=== PATIENT | female | born 1955 | race Caucasian/White ===

== ENCOUNTER 2019-09-14 16:16 | Emergency (ER) | payer BC, MEDICARE ==
[2019-09-14] MEDS ORDERED: LORazepam 0.5 MG Tab PO ONE ×2 (16:17→18:19)
[2019-09-14] MEDS ORDERED: methylPREDNISolone Sodium Succinate 125 MG/2 ML SDV IVPUSH ONE (16:22)
--- NOTE | 2019-09-14 16:40 | EDM.PDOC ---
ED HPI GENERAL MEDICAL PROBLEM - General Chief Complaint: Allergic Reaction Stated Complaint: ALERGIC REACTION TO A MEDICATION Time Seen by Provider: 09/14/19 16:25 Source of Information: Reports: Patient History Limitations: Reports: No Limitations - History of Present Illness INITIAL COMMENTS - FREE TEXT/NARRATIVE: This 63 yo female patient reports to the ED due to diffuse hives. The patient reports she was started on Bactrim last . The patient's last dose was Wednesday. The patient reports she started to notice hives on Wednesday Evening, but they have been getting worse since that time. The patient has been taking Benadryl today (2 doses of 50 mg) today with no improvements. Onset Date: 09/12/19 Duration: Constant, Getting Worse Location: Reports: Abdomen, Upper Extremity, Left, Upper Extremity, Right, Lower Extremity, Left, Lower Extremity, Right Quality: Reports: Other Severity: Moderate Improves with: Reports: None Worsens with: Reports: None Context: Reports: Other Associated Symptoms: Reports: Other - Related Data Allergies Allergy/AdvReac Type Severity Reaction Status Date / Time aspirin Allergy Bleeding Verified 09/14/19 16:22 flurbiprofen [From Ansaid] Allergy Bleeding Verified 09/14/19 16:22 sulfamethoxazole Allergy Hives Verified 09/14/19 16:22 [From Bactrim] trimethoprim [From Bactrim] Allergy Hives Verified 09/14/19 16:22 Home Meds: Home Meds Amitriptyline HCl 05/24/14 [History] FLUoxetine HCl [Fluoxetine HCl] 05/24/14 [History] Hydrochlorothiazide 05/24/14 [History] Quinapril [Accupril] 05/24/14 [History] Simvastatin 05/24/14 [History] Past Medical History HEENT History: Reports: Impaired Vision Genitourinary History: Reports: UTI, Recurrent - Past Surgical History HEENT Surgical History: Reports: Tonsillectomy GI Surgical History: Reports: Other (See Below) Other GI Surgeries/Procedures: lap band Musculoskeletal Surgical History: Reports: Knee Replacement Social & Family History - Tobacco Use Smoking Status *Q: Never Smoker Second Hand Smoke Exposure: Yes - Recreational Drug Use Recreational Drug Use: No ED ROS ALLERGIC REACTION - Review of Systems Review Of Systems: Comprehensive ROS is negative, except as noted in HPI. ED EXAM GENERAL NO PERIP PULSE - Physical Exam Exam: See Below Exam Limited By: No Limitations General Appearance: Alert, WD/WN, Moderate Distress Eye Exam: Bilateral Eye: EOMI, Normal Inspection, PERRL Ears: Normal External Exam, Normal Canal, Hearing Grossly Normal, Normal TMs Nose: Normal Inspection, Normal Mucosa, No Blood Throat/Mouth: Normal Inspection, Normal Lips, Normal Teeth, Normal Gums, Normal Oropharynx, Normal Voice, No Airway Compromise Head: Atraumatic, Normocephalic Neck: Normal Inspection, Supple, Non-Tender, Full Range of Motion Respiratory/Chest: No Respiratory Distress, Lungs Clear, Normal Breath Sounds, No Accessory Muscle Use, Chest Non-Tender Cardiovascular: Normal Peripheral Pulses, Regular Rate, Rhythm, No Edema, No Gallop, No JVD, No Murmur, No Rub GI/Abdominal: Normal Bowel Sounds, Soft, Non-Tender, No Organomegaly, No Distention, No Abnormal Bruit, No Mass (Female) Exam: Deferred Rectal (Female) Exam: Deferred Extremities: Normal Range of Motion, Non-Tender, No Pedal Edema, Normal Capillary Refill Neurological: Alert, Oriented, CN II-XII Intact, Normal Cognition, Normal Gait, Normal Reflexes, No Motor/Sensory Deficits Psychiatric: Normal Affect, Normal Mood Skin Exam: Other (Hives (abdomen, upper and lower extremities)) Lymphatic: No Adenopathy Course - Vital Signs Last Recorded V/S: Last Vital Signs Temp 36.6 C 09/14/19 16:18 Pulse 114 H 09/14/19 16:18 Resp 16 09/14/19 16:18 BP 155/96 H 09/14/19 16:18 Pulse Ox 97 09/14/19 16:18 - Orders/Labs/Meds Meds: Medications Discontinued Medications Generic Name Dose Route Start Last Admin Trade Name Freq PRN Reason Stop Dose Admin Famotidine 20 mg 09/14/19 17:40 09/14/19 17:44 Pepcid IVPUSH 09/14/19 17:41 20 mg ONETIME ONE Administration Lorazepam 0.5 mg 09/14/19 18:19 Ativan PO 09/14/19 18:20 ONETIME ONE Methylprednisolone Sodium Succinate 125 mg 09/14/19 16:22 09/14/19 16:29 Solu-Medrol IVPUSH 09/14/19 16:23 125 mg ONETIME ONE Administration Departure - Departure Time of Disposition: 18:22 Disposition: Home, Self-Care 01 Condition: Fair Clinical Impression: Allergic reaction caused by a drug Qualifiers: Encounter type: initial encounter Qualified Code(s): T78.40XA - Allergy, unspecified, initial encounter - Discharge Information *PRESCRIPTION DRUG MONITORING PROGRAM REVIEWED*: Not Applicable *COPY OF PRESCRIPTION DRUG MONITORING REPORT IN PATIENT MARCELINO: Not Applicable Instructions: Allergies, Adult, [id number] Forms: ED Department Discharge Care Plan Goals: The patient was advised of the examination results during the visit. The patient was given an IV dose of SoluMedrol (125 mg), an IV dose of Pepcid and an oral dose of Ativan (0.5 mg) while in the ED. The patient was discharged with 1 dose of Ativan (0.5 mg) to take at bedtime. The patient was also discharged with a script for Prednisone (20 mg) #10 to take 2 by mouth daily for 5 days. The patient was advised to 1) avoid taking Bactrim, 2) take Benadryl (25 mg) every 6 hours, 3) take [id number] Pepcid as directed and 4) take the prescribed Prednisone as directed. If the patient has any additional symptoms or concerns, the patient should either return to the emergency department or visit her primary care facility.
[2019-09-14] MEDS ORDERED: Famotidine 20 MG/2 ML SDV IVPUSH ONE (17:40)
[2019-09-14] MEDS ORDERED: LORazepam 0.5 MG Tab ONE (18:25)
== END 2019-09-14 18:33 | disposition home or self-care (01) ==
LOC: DL.ED 16:16
DX: L50.9 Urticaria, unspecified (principal); T36.8X5A Adverse effect of other systemic antibiotics, initial encounter; Z88.6 Allergy status to analgesic agent; Z88.2 Allergy status to sulfonamides; Z88.1 Allergy status to other antibiotic agents
CPT/HCPCS: 96374; 96375; 99283; A9270; J2930; J3490

== ENCOUNTER 2020-02-29 12:48 | Emergency (ER) | payer MEDICARE, OTHER ==
[2020-02-29] MEDS ORDERED: methylPREDNISolone Sodium Succinate 125 MG/2 ML SDV IM ONE (13:03)
[2020-02-29] MEDS ORDERED: diphenhydrAMINE 50 MG Cap PO ONE (13:04)
--- NOTE | 2020-02-29 14:14 | EDM.PDOC ---
ED HPI GENERAL MEDICAL PROBLEM - General Chief Complaint: Allergic Reaction Stated Complaint: HIVES AND THROAT SWELLING Time Seen by Provider: 02/29/20 13:05 Source of Information: Reports: Patient History Limitations: Reports: No Limitations - History of Present Illness INITIAL COMMENTS - FREE TEXT/NARRATIVE: This 64 yo female patient reports to the ED with swelling in her tongue, throat and hives. The patient reports she recently finished Macrobid for a UTI. Today, the patient reports noticing the above symptoms prior to arrival. The patient reports she did take a Banadryl (25 mg) but it was . 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 TECHNICIAN: Reports: Other Medication(s) Other Treatments ELECTRICAL AND INSTRUMENT TECHNICIAN: benadryl - Related Data Allergies Allergy/AdvReac Type Severity Reaction Status Date / Time aspirin Allergy Bleeding Verified 02/29/20 12:59 flurbiprofen [From Ansaid] Allergy Bleeding Verified 02/29/20 12:59 sulfamethoxazole Allergy Hives Verified 02/29/20 12:59 [From Bactrim] trimethoprim [From Bactrim] Allergy Hives Verified 02/29/20 12:59 Home Meds: Home Meds Amitriptyline HCl 10 mg PO BEDTIME 05/24/14 [History] Hydrochlorothiazide 254 mg PO DAILY 05/24/14 [History] Quinapril [Accupril] 40 mg PO DAILY 05/24/14 [History] Simvastatin 20 mg PO BEDTIME 05/24/14 [History] Past Medical History HEENT History: Reports: Impaired Vision Cardiovascular History: Reports: None Respiratory History: Reports: None Gastrointestinal History: Reports: None Genitourinary History: Reports: UTI, Recurrent 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 Musculoskeletal History: Reports: None Neurological History: Reports: None Psychiatric History: Reports: None Endocrine/Metabolic History: Reports: None Hematologic History: Reports: None Immunologic History: Reports: None Oncologic (Cancer) History: Reports: None Dermatologic History: Reports: None - Infectious Disease History Infectious Disease History: Reports: None - Past Surgical History HEENT Surgical History: Reports: Tonsillectomy GI Surgical History: Reports: Other (See Below) Other GI Surgeries/Procedures: lap band Musculoskeletal Surgical History: Reports: Knee Replacement Social & Family History - Family History Family Medical History: Noncontributory - Tobacco Use Smoking Status *Q: Never Smoker Second Hand Smoke Exposure: No - Caffeine Use Caffeine Use: Reports: None - Recreational Drug Use Recreational Drug Use: No ED ROS ALLERGIC REACTION - Review of Systems Review Of Systems: Comprehensive ROS is negative, except as noted in HPI. ED EXAM GENERAL NO PERIP PULSE - Physical Exam Exam: See Below Exam Limited By: No Limitations General Appearance: Alert, WD/WN, Anxious, Mild Distress Eye Exam: Bilateral Eye: EOMI, Normal Inspection, PERRL Ears: Normal External Exam, Normal Canal, Hearing Grossly Normal, Normal TMs Nose: Normal Inspection, Normal Mucosa, No Blood Throat/Mouth: Normal Inspection, Normal Lips, Normal Teeth, Normal Gums, Normal Oropharynx, Normal Voice, No Airway Compromise Head: Atraumatic, Normocephalic Neck: Normal Inspection, Supple, Non-Tender, Full Range of Motion Respiratory/Chest: No Respiratory Distress, Lungs Clear, Normal Breath Sounds, No Accessory Muscle Use, Chest Non-Tender Cardiovascular: Normal Peripheral Pulses, Regular Rate, Rhythm, No Edema, No Gallop, No JVD, No Murmur, No Rub GI/Abdominal: Normal Bowel Sounds, Soft, Non-Tender, No Organomegaly, No Distention, No Abnormal Bruit, No Mass (Female) Exam: Deferred Rectal (Female) Exam: Deferred Back Exam: Normal Inspection, Full Range of Motion, NT Extremities: Normal Inspection, Normal Range of Motion, Non-Tender, Normal Capillary Refill, No Pedal Edema Neurological: Alert, Oriented, CN II-XII Intact, Normal Cognition, Normal Gait, Normal Reflexes, No Motor/Sensory Deficits Psychiatric: Normal Affect, Normal Mood Skin Exam: Warm, Dry, Intact, Normal Color Lymphatic: No Adenopathy Course - Vital Signs Last Recorded V/S: Last Vital Signs Temp 37.4 C 02/29/20 12:53 Pulse 123 H 02/29/20 12:53 Resp 16 02/29/20 12:53 BP 153/86 H 02/29/20 12:53 Pulse Ox 100 02/29/20 12:53 - Orders/Labs/Meds Meds: Medications Discontinued Medications Generic Name Dose Route Start Last Admin Trade Name Clydeq PRN Reason Stop Dose Admin Diphenhydramine HCl 50 mg 02/29/20 13:04 02/29/20 13:21 Benadryl PO 02/29/20 13:05 50 mg ONETIME ONE Administration Methylprednisolone Sodium Succinate 125 mg 02/29/20 13:03 02/29/20 13:22 Solu-Medrol IM 02/29/20 13:04 125 mg ONETIME ONE Administration Departure - Departure Time of Disposition: 14:10 Disposition: Home, Self-Care 01 Condition: Fair Clinical Impression: Allergic reaction to drug Qualifiers: Encounter type: initial encounter Qualified Code(s): T78.40XA - Allergy, unspecified, initial encounter - Discharge Information *PRESCRIPTION DRUG MONITORING PROGRAM REVIEWED*: Not Applicable *COPY OF PRESCRIPTION DRUG MONITORING REPORT IN PATIENT MARCELINO: Not Applicable Forms: ED Department Discharge Care Plan Goals: The patient was advised of the examination results during the visit. The patient was given an injection of SoluMedrol (125 mg) and an oral dose of Benadryl (50 mg) while in the ED. The patient was discharged with a script for Prednisone (20 mg) #10 to take 2 by mouth daily for 5 days. The patient was encouraged to take Benadryl (25 mg) every 6 hours for the next 24-48 hours. If the patient has any additional symptoms, the patient should either return to the emergency department or visit her primary care facility. Sepsis Event Note - Evaluation Sepsis Screening Result: No Definite Risk - Focused Exam Vital Signs: Vital Signs Temp Pulse Resp BP Pulse Ox 02/29/20 12:53 37.4 C 123 H 16 153/86 H 100 Date Exam was Performed: 02/29/20 Time Exam was Performed: 14:16
== END 2020-02-29 14:25 | disposition home or self-care (01) ==
LOC: DL.ED 12:48
DX: K14.8 Other diseases of tongue (principal); T37.8X5A Adverse effect of other specified systemic anti-infectives and antiparasitics, initial encounter; Z88.6 Allergy status to analgesic agent; Z88.2 Allergy status to sulfonamides; Z79.899 Other long term (current) drug therapy
CPT/HCPCS: 96372; 99283; J2930; Q0163

== ENCOUNTER 2020-10-22 15:10 | Emergency (ER) | payer MEDICARE, OTHER ==
--- NOTE | 2020-10-22 15:49 | EDM.PDOC ---
ED HPI GENERAL MEDICAL PROBLEM - General Chief Complaint: Gastrointestinal Problem Stated Complaint: SURGERY ON , NOT HEALING Time Seen by Provider: 10/22/20 15:48 Source of Information: Reports: Patient, RN, RN Notes Reviewed History Limitations: Reports: No Limitations - History of Present Illness INITIAL COMMENTS - FREE TEXT/NARRATIVE: Pt sent to ER by [facility] CNA PER DIEM with request that we evaluate her surgical sites and obtain a CT Abd/Pelvis. Pt is concerned about serous drainage that has become cloudy despite being on Clindamycin x5 days. She underwent lap band removal due to erosion on 09/25/20. - Related Data Allergies Allergy/AdvReac Type Severity Reaction Status Date / Time aspirin Allergy Bleeding Verified 10/22/20 15:29 flurbiprofen [From Ansaid] Allergy Bleeding Verified 10/22/20 15:29 sulfamethoxazole Allergy Hives Verified 10/22/20 15:29 [From Bactrim] trimethoprim [From Bactrim] Allergy Hives Verified 10/22/20 15:29 Home Meds: Home Meds Amitriptyline HCl 10 mg PO BEDTIME 05/24/14 [History] Hydrochlorothiazide 254 mg PO DAILY 05/24/14 [History] Quinapril [Accupril] 40 mg PO DAILY 05/24/14 [History] Simvastatin 20 mg PO BEDTIME 05/24/14 [History] Past Medical History HEENT History: Reports: Impaired Vision Cardiovascular History: Reports: None Respiratory History: Reports: None Gastrointestinal History: Reports: None Genitourinary History: Reports: UTI, Recurrent 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 Musculoskeletal History: Reports: None Neurological History: Reports: None Psychiatric History: Reports: None Endocrine/Metabolic History: Reports: None Hematologic History: Reports: None Immunologic History: Reports: None Oncologic (Cancer) History: Reports: None Dermatologic History: Reports: None - Infectious Disease History Infectious Disease History: Reports: None - Past Surgical History Head Surgeries/Procedures: Reports: None HEENT Surgical History: Reports: Tonsillectomy GI Surgical History: Reports: Bariatric Procedure (lap band, which eroded and now lap band removed.), Other (See Below) Other GI Surgeries/Procedures: lap band Musculoskeletal Surgical History: Reports: Knee Replacement Social & Family History - Family History Family Medical History: No Pertinent Family History - Tobacco Use Tobacco Use Status *Q: Never Tobacco User Second Hand Smoke Exposure: No - Caffeine Use Caffeine Use: Reports: None - Recreational Drug Use Recreational Drug Use: No ED ROS GENERAL - Review of Systems Review Of Systems: Comprehensive ROS is negative, except as noted in HPI. ED EXAM, GI/ABD - Physical Exam Exam: See Below Exam Limited By: No Limitations General Appearance: Alert, WD/WN, No Apparent Distress Respiratory/Chest: No Respiratory Distress Cardiovascular: Regular Rate, Rhythm GI/Abdominal Exam: Normal Bowel Sounds, Soft, No Organomegaly, No Distention, No Abnormal Bruit, No Mass, Pelvis Stable, Other (Uma-incisional tenderness only) Neurological: Alert, Oriented, No Motor/Sensory Deficits Psychiatric: Normal Mood Skin Exam: Warm, Dry, Wound/Incision (Abdominal surgical incisions x2 with cloudy serous drainage, on incisin is well healed, the Rt superior incision has mild erythema with some raised fluctuance.) Course - Vital Signs Last Recorded V/S: Last Vital Signs Temp 99 F 10/22/20 15:25 Pulse 117 H 10/22/20 15:25 Resp 18 10/22/20 15:25 BP 151/76 H 10/22/20 15:25 Pulse Ox 99 10/22/20 15:25 - Orders/Labs/Meds Orders: Active Orders 24 hr Category Date Time Status CULTURE WOUND [RM] Stat Lab 10/22/20 15:45 Received Meds: Medications Discontinued Medications Generic Name Dose Route Start Last Admin Trade Name Phillip PRN Reason Stop Dose Admin Iopamidol 100 ml 10/22/20 15:50 10/22/20 16:35 Isovue-300 (61%) IVPUSH 10/22/20 15:51 75 ml ONETIME ONE Administration - Radiology Interpretation Free Text/Narrative:: CT Abd/Pelvis: postoperative abd. wall changes, no acute pathology or perf, see Rad. report. Departure - Departure Time of Disposition: 18:01 Disposition: Home, Self-Care 01 Condition: Good Clinical Impression: Encounter for postoperative wound check, Drainage from surgical wound - Discharge Information *PRESCRIPTION DRUG MONITORING PROGRAM REVIEWED*: Not Applicable *COPY OF PRESCRIPTION DRUG MONITORING REPORT IN PATIENT MARCELINO: Not Applicable Instructions: Incision Care, Adult Forms: ED Department Discharge Additional Instructions: Rx: Bactroban (Mupirocin) 2% Continue Clindamycin as prescribed. Your CT scan has been uploaded to the [facility] for your surgeon to review. Call your surgeons office tomorrow regarding the drainage and the CT report. Sepsis Event Note (ED) - Evaluation Sepsis Screening Result: No Definite Risk - Focused Exam Vital Signs: Vital Signs Temp Pulse Resp BP Pulse Ox 10/22/20 15:25 99 F 117 H 18 151/76 H 99 - My Orders Last 24 Hours: My Active Orders 10/22/20 15:45 CULTURE WOUND [RM] Stat - Assessment/Plan Last 24 Hours: My Active Orders 10/22/20 15:45 CULTURE WOUND [RM] Stat
[2020-10-22] MEDS ORDERED: Iopamidol 612 MG/ML 100 ML Bottle IVPUSH ONE (15:50)
--- NOTE | 2020-10-22 17:03 | CT ---
EXAMINATION: Abdomen Pelvis w Cont SEX: Female AGE: 64 years CLINICAL HISTORY: 64-year-old hypertensive 186 pound female with incisional drainage post "erosive lap band" removal. (Patient weight 198 pound 10 July 2020) Hysterectomy without oophorectomy. Scan technique: Volume acquisition of data from the abdomen and pelvis obtained without oral contrast but during the intravenous administration 75 cc nonionic Isovue contrast while patient was lying supine on the Siemens multislice scanner [place], [place]. All data archived in the PACS system for storage, reformatting axial/sagittal/coronal planes and study. Interpretation: 1. Discrete 7.5 mm diameter parenchymal soft tissue lung nodule deep in the left costophrenic sulcus. 2. Bibasilar platelike atelectasis. No other nodule, lobar consolidation or dependent pleural effusion. 3. No residual evidence of "lap band apparatus". Small hiatus hernia. 4. *Tiny focal ventral wall defect left abdomen with subcutaneous fluid "tracking" to the skin surface on a plane well above the umbilicus (sagittal images #[id number]; axial images #[id number]). Smaller collection fluid RUQ. 5. No foreign bodies, abscess or subcutaneous air. 6. No intraperitoneal mass, inflammatory "dirty" peritoneal fat, signs of mechanical bowel obstruction, ascites or free intraperitoneal air. 7. Gallbladder, liver, spleen, pancreas and adrenal glands and kidneys unremarkable. 8. Atheromatous calcification scattered course of normal caliber aortoiliac vessels. 9. Osteopenia. Hemangiomas T11 and L2 vertebral body; chronic L5-S1 disc disease. No fractures. CONCLUSION: No acute intraperitoneal abnormality. Left lower lobe nodule. Evidence of recent surgery and apparent subcutaneous intervention upper abdomen (L>R).
== END 2020-10-22 18:19 | disposition home or self-care (01) ==
LOC: DL.ED 15:10
DX: T81.89XA Other complications of procedures, not elsewhere classified, initial encounter (principal); Z88.8 Allergy status to other drugs, medicaments and biological substances; Z88.2 Allergy status to sulfonamides
CPT/HCPCS: 74177; 87070; 99283; 99284-25; Q9967

== ENCOUNTER 2024-02-22 20:46 | Emergency (ER) | payer MEDICARE, OTHER ==
[2024-02-22] MEDS: Morphine 2 MG/ML SYRINGE IVPUSH ONE (21:33)
[2024-02-22 21:34] LABS: BASOPHILS PERCENT AUTO 0.1 % (0.0-1.0); EOSINOPHILS PERCENT AUTO 2.1 % (1.0-3.0); HEMATOCRIT 35.7 % (37.0-47.0); LYMPHOCYTES PERCENT AUTO 29.8 % (20.5-50.1); MEAN CORPUSCULAR HGB CONC 33.6 g/dL (33.0-35.0); MEAN CORPUSCULAR VOLUME 89.3 fL (80-100); MONOCYTES PERCENT AUTO 7.8 % (2-8); NEUTROPHILS PERCENT AUTO 60.2 % (42.2-75.2); PLATELET COUNT,PLT 156 10^3/uL (150-450); WHITE BLOOD CELL COUNT,WBC 7.7 10^3/uL (5.0-10.0)
[2024-02-22] MEDS: Lactated Ringers 1,000 ML IV ONE (21:34)
[2024-02-22] MEDS: Sodium Chloride 0.9% 10 ML Syringe FLUSH PRN (21:34)
[2024-02-22] MEDS: Metoclopramide 10 MG/2 ML SDV IVPUSH ONE (21:52)
[2024-02-22 21:59] LABS: A/G RATIO 1.2; ALBUMIN 3.8 g/dL (3.4-5.0); ANION GAP 12.6 mEq/L (7-13); BILIRUBIN TOTAL 0.4 mg/dL (0.2-1.0); BUN/CREATININE RATIO 15.6 (No establ ref range); CALCIUM 9.1 mg/dL (8.5-10.1); CREATININE 0.9 mg/dL (0.55-1.02); EST CRCL DRUG DOSING (CG) 56.56 mL/min; POTASSIUM,K 3.6 mmol/L (3.5-5.1); PROTEIN TOTAL,TP 7.1 g/dL (6.4-8.2)
[2024-02-22] MEDS: Iopamidol 612 MG/ML 100 ML Bottle IVPUSH ONE (22:23)
[2024-02-23] MEDS: Amoxicillin/Clavulanate K 875-125 MG Tab PO ONE (00:38)
[2024-02-23] MEDS: Morphine 2 MG/ML SYRINGE IVPUSH ONE (00:38)
== END 2024-02-23 00:50 | disposition home or self-care (01) ==
LOC: DL.ED 20:46
DX: K52.9 Noninfective gastroenteritis and colitis, unspecified (principal); I10 Essential (primary) hypertension; Z79.899 Other long term (current) drug therapy; Z88.5 Allergy status to narcotic agent; Z88.6 Allergy status to analgesic agent; Z88.2 Allergy status to sulfonamides; Z88.8 Allergy status to other drugs, medicaments and biological substances
CPT/HCPCS: 36415; 74177; 80053; 83690; 85025; 96361; 96374; 96375; 96376; 99284; 99284-25; A9270-GY; J2270; J2765; J3490; J7120; Q9967

== ENCOUNTER 2025-06-17 13:49 | Emergency (ER) | payer MEDICARE, OTHER ==
[2025-06-17 14:24] LABS: BASOPHILS PERCENT AUTO 0.3 % (0.0-1.0); EOSINOPHILS PERCENT AUTO 1.5 % (1.0-3.0); LYMPHOCYTES PERCENT AUTO 22.5 % (20.5-50.1); MONOCYTES PERCENT AUTO 9.6 % (2-8); NEUTROPHILS PERCENT AUTO 66.1 % (42.2-75.2); PLATELET COUNT,PLT 181 10^3/uL (150-450); RED BLOOD CELL COUNT 4.62 10^6/uL (4.2-5.4); WHITE BLOOD CELL COUNT,WBC 9.2 10^3/uL (5.0-10.0)
[2025-06-17 14:30] LABS: APPEARANCE,URINE SLIGHTLY CLOUDY (CLEAR); GLUCOSE,URINE NEGATIVE (NEGATIVE); OCCULT BLOOD,URINE MODERATE (NEGATIVE)
[2025-06-17 14:40] LABS: EPITHELIAL CELLS,URINE MODERATE /HPF (NOT SEEN)
[2025-06-17 14:43] LABS: A/G RATIO 1.1; ALANINE AMINOTRANSFERASE,ALT 26.0 U/L (14-59); ASPARTATE AMNIOTRANSFERASE,AST 20.0 U/L (15-37); BILIRUBIN TOTAL 0.6 mg/dL (0.2-1.0); BLOOD UREA NITROGEN,BUN 18.0 mg/dL (7-18); CARBON DIOXIDE,CO2 31.0 mmol/L (21-32); CHLORIDE,CL 107.0 mmol/L (98-107); CREATININE 0.96 mg/dL (0.55-1.02); EST CRCL DRUG DOSING (CG) 52.27 mL/min; ESTIMATED GFR 63.0 mL/min (>=60); GLUCOSE RANDOM 102.0 mg/dL (70-99); POTASSIUM,K 3.9 mmol/L (3.5-5.1); PROTEIN TOTAL,TP 7.5 g/dL (6.4-8.2); SODIUM,NA 145.0 mmol/L (136-145)
[2025-06-17] MEDS: Iopamidol 612 MG/ML 100 ML Bottle IVPUSH ONE (15:02)
[2025-06-17] MEDS: Take Home: Cephalexin 500 MG Cap, 6 Cap Pack PO ONE (15:40)
== END 2025-06-17 15:44 | disposition home or self-care (01) ==
LOC: DL.ED 13:49
DX: K52.9 Noninfective gastroenteritis and colitis, unspecified (principal); N39.0 Urinary tract infection, site not specified; I10 Essential (primary) hypertension; E11.9 Type 2 diabetes mellitus without complications; E78.5 Hyperlipidemia, unspecified; Z88.6 Allergy status to analgesic agent; Z88.2 Allergy status to sulfonamides; Z88.5 Allergy status to narcotic agent; Z88.8 Allergy status to other drugs, medicaments and biological substances; Z79.84 Long term (current) use of oral hypoglycemic drugs; Z79.899 Other long term (current) drug therapy
CPT/HCPCS: 36415; 74177; 80053; 81001; 85025; 87086; 87088; 87186; 96360; 99284; 99285-25; A9270-GY; J7030; Q9967